=== PATIENT | female | born 1965 | race Caucasian/White ===

== ENCOUNTER 2021-05-30 10:53 | Outpatient (REF) | payer BC, SELFPAY ==
--- NOTE | ~2021-05-30 | XR_ITS ---
EXAMINATION: XR CERVICAL SPINE CLINICAL INFORMATION: Postlaminectomy syndrome, numbness and tingling down arms. COMPARISON: None TECHNIQUE: 5 views of the cervical spine were obtained. FINDINGS: There is reversal of normal cervical lordosis. Minor anterolisthesis C4 on C5 noted. Mild C5 vertebral body height loss is likely degenerative. Multilevel disc space narrowings are seen and C6-C7 disc spacer identified. Bilateral C6-C7 moderate to moderately severe neuroforaminal narrowings are seen. Other multilevel mild neuroforaminal narrowings are noted. Hypertrophic facet changes are seen. Odontoid is intact, posterior elements are aligned and no prevertebral soft tissue swelling seen. Lung apices are clear. Soft tissues are unremarkable. XR/XR cervical spine 4V IMPRESSION: Prior C6-C7 surgery with bilateral C6-C7 neuroforaminal narrowings. Mild anterolisthesis C4 on C5, multilevel disc disease and cervical lordotic reversal.
== END 2021-05-30 10:54 | disposition home or self-care (01) ==
LOC: HO.XRAY 10:53
PROVIDERS: Visit Provider Nurse Practitioner Family
DX: M96.1 Postlaminectomy syndrome, not elsewhere classified (principal)
CPT/HCPCS: 72050